=== PATIENT | male | born 1995 | race Caucasian/White ===

== ENCOUNTER 2017-09-07 10:02 | Emergency (ER) | payer BC ==
[~2017-09-07] VITALS: Ht 182.9 cm; Wt 77.1 kg
[2017-09-07 10:08] VITALS: Ht 182.9 cm; Wt 77.1 kg
[2017-09-07 11:32] VITALS: BP 138/71
== END 2017-09-07 11:32 | disposition home or self-care (01) ==
LOC: ED 10:02
DX: K40.90 Unilateral inguinal hernia, without obstruction or gangrene, not specified as recurrent (principal); K59.00 Constipation, unspecified; J45.909 Unspecified asthma, uncomplicated